=== PATIENT | female | born 1970 | race Caucasian/White ===

== ENCOUNTER 2025-04-06 16:01 | Emergency (ER) | payer MEDICARE, MEDICAID, SELFPAY ==
--- NOTE | ~2025-04-06 | XR_ITS ---
CLINICAL HISTORY: sob 1 view chest x-ray Comparison: None provided Findings: Mild diffuse interstitial prominence in both lungs may represent pulmonary vascular congestion. Normal size heart. No acute fracture. IMPRESSION: Mild diffuse interstitial prominence in both lungs may represent pulmonary vascular congestion. This document has been electronically signed by: Alex Calderon MD on 04/06/2025 19:21:54
--- NOTE | 2025-04-06 16:18 | PC.RT ---
Pt seen by RT on MES arrival. Pt had bronchodilator treatments x2 by EMS with positive improvement. Upon RT assessment, pt is not SOB, SATs on RA 86% while laying flat. Pt asked to sit up and reposition, pt refused stating back and neck pain. Pt on 2L SATs 93%. RR 20, L/S clear bilateral w/ snoring rhonchi on expiration due to laying flat and anatomy. Pt states she does not want another breathing tx at this time. Pt states she wears 2L O2 at night through BiPAP machine. Pt states that she wears her BiPAP every night except for last night due to being in the hospital at [facility]. RN aware of RT assessment.
[2025-04-06 16:19] VITALS: BP 120/77; PULSE 97; RESP 23; TEMP 36.8; O2SAT 94; O2SAT 97; BMI 45.8
--- NOTE | 2025-04-06 17:43 | MHC.EDTECH ---
pt placed on purewick upon request, rn aware
--- NOTE | 2025-04-06 18:09 | PC.NURSE ---
pt comes to ED from home reporting SOB for 1 day after DC from [facility] last night. She states that today she was SOB, didn't have her neb and called EMS. Reports heavy drinking yesterday which is why she was at [facility]. EMS gave2x duonebs. Currently on 2L O2. Pt states she feels better after the nebs. Spo2 mid 90s on 2l. Trailed off O2 on arrival by RT and dipped to 86%. Pt fell asleep after assessment. Waiting for provider orders.
--- OUTSIDE RECORDS SUMMARY | 2025-04-06 18:24 | XMS_ITS | Clinical Summary ---
Author Organization [facility] Facility Address [address] [place] [id number] Care Team Providers Care Bronc Buster Name Role Phone Unavailable Primary Care Provider Unavailabl e Allergies No known active allergies Medications albuterol HFA (PROVENTIL HFA;VENTOLIN HFA) 108 (90 Base) MCG/ACT inhaler albuterol sulfate HFA 90 mcg/actuation aerosol inhaler 03/13/20 19 Active aspirin (ST STAR) 81 MG EC tablet aspirin 81 mg tablet,delayed release TAKE 1 TABLET BY MOUTH DAILY,X90 DAYS 11/28/19 22 Active bumetanide (BUMEX) 2 MG tablet bumetanide 2 mg tablet TAKE 1 TABLET BY MOUTH DAILY. 01/16/20 21 Active cloNIDine (CATAPRES) 0.1 MG tablet clonidine HCl 0.1 mg tablet TAKE 1 TABLET BY MOUTH THREE TIMES A DAY NEEDED 01/27/20 22 Active cyclobenzaprin e (FLEXERIL) 10 MG tablet cyclobenzaprine 10 mg tablet TAKE 1 TABLET BY MOUTH 3 TIMES A DAY NEEDED 07/23/20 21 Active Docusate Sodium (DSS) 100 MG capsule Take 100 mg by mouth 2 (two) times a day if needed 01/19/20 22 Active ipratropium HFA (ATROVENT HFA) 17 MCG/ACT inhaler Inhale 1 puff 4 times a day 03/13/20 19 Active ipratropium-al buterol (Combivent Respimat) 20-100 MCG/ACT inhaler Combivent Respimat 20 mcg-100 mcg/actuation solution for inhalation 1 PUFFS INHALATION 4 TIMES A DAY,X30 DAYS 01/30/20 20 Active ketoconazole (NIZORAL) 2 % cream ketoconazole 2 % topical cream 1 APPLICATION TOPICALLY DAILY,X30 DAYS 07/24/20 21 Active lisinopril 20 MG tablet lisinopril 20 mg tablet TAKE 1 TABLET BY MOUTH DAILY,X90 DAYS Active magnesium oxide 400 (240 Mg) MG tablet magnesium oxide 400 mg (241.3 mg magnesium) tablet 10/11/19 22 Active metOLazone 2.5 MG tablet metolazone 2.5 mg tablet Active miconazole (MICOTIN) 2 % cream Apply 1 application topically 2 (two) times a day if needed 10/08/19 22 Active morphine (MSIR) 15 MG tablet Take 15 mg by mouth 01/27/20 22 Active omeprazole (PriLOSEC) [address] capsule omeprazole 40 mg capsule,delayed release TAKE 1 CAPSULE BY MOUTH 30 - 60 MINS PRIOR TO EATING OR DRINKING 10/16/19 22 Active potassium chloride 10 MEQ CR tablet 20 mEq 09/28/20 21 Active sulfacetamide (BLEPH-10) 10 % ophthalmic solution sulfacetamide sodium 10 % eye drops Active HYDROmorphone (DILAUDID) 4 MG tablet Take 4 mg by mouth every 4 (four) hours if needed for moderate pain Active Active Problems Problem Noted Date Diagnosed Date Bipolar I disorder 06/17/2022 Edema of lower extremity 06/17/2022 Gastroesophageal reflux disease 06/17/2022 Acute exacerbation of chronic obstructive pulmon juan disease 12/22/2021 Overview (06/17/2022): Last Assessment & Plan: Breath sounds are diminished although this could be due to habitus. Minimal wheezing. Given IV Solu-Medrol in the emergency department. I will continue with oral prednisone with scheduled and as needed DuoNeb treatments. Not having a purulent cough so I will not give empiric antibiotics. Chronic respiratory failure 12/22/2021 Overview (06/17/2022): O2 as needed at home for SPO2 <90% Last Assessment & Plan: On 2 L/min via nasal cannula with SPO2 91%. This is appropriate. ABG pending although clinically I do not suspect hypercapnia. Lymphedema 09/06/2021 Obstructive sleep apnea syndrome 06/04/2020 Overview (06/17/2022): Last Assessment & Plan: Prior diagnosis of sleep apnea but patient was unable to complete the full evaluation due to claustrophobia and anxiety. She did have a solitary 2-second pause with brief bradycardia on telemetry monitoring, likely related to her sleep apnea. -Overnight pulse oximetry monitoring -Telemetry monitoring -Outpatient sleep study will be needed for further evaluation -Consider use of oxygen overnight if patient agreeable. Chronic diastolic heart failure 01/29/2020 Overview (06/17/2022): Last Assessment & Plan: No rales on lung exam. Given IV Lasix in the emergency department, but I do not feel that she is volume overloaded more than her baseline. We will continue with her Bumex and metolazone. Immunizations Immunization Administration Dates Next Due Moderna SARS-COV-2 08/16/2021 Pfizer SARS-COV-2 02/12/2021,01/24/2021 Social History Tobacco Use Types Packs/Day Years Used Date Smoking Tobacco: Every Day Cigarettes Smokeless Tobacco: Never Tobacco Cessation:Ready to Q uit: Not Asked; Counseling Given: Not Answered Alcohol Use Standard Drinks/Week Comments Yes 0 (1 standard drink = 0.6 oz pur e alcohol) Comments Unknown Sex and Gender Information Value Date Recorded Sex Assigned at Not on file Legal Sex Female 10:23 AM EDT Gender Identity Not on file Sexual Orientation Not on file Plan of Treatment Health Maintenance Due Date Last Done Comments Breast Cancer Screening 1970 Hepatitis B Vaccine (1 of 3 - 19+ 3-dose series) 09/12 Pneumococcal Vaccine: 50+ Years (1 of 2 - PCV) 989 Colorectal Cancer Screening: Annual FOBT 2019 Colorectal Cancer Screening: Colonoscopy 2019 Colorectal Cancer Screening: Sigmoidoscopy 2019 Influenza Vaccine (#1) 2025 Insurance [facility] ([id number]) [facility]
--- OUTSIDE RECORDS SUMMARY | 2025-04-06 18:24 | XMS_ITS | Clinical Summary ---
Author Organization [employer] Address [address] [facility] [address] [place] [address] Care Team Providers Care Seasonal Retail Merchandiser Name Role Phone Kamille Fuchs MD Primary Care Provider [phone] Medications varenicline (Chantix) 0.5 MG tablet Take 0.5 mg by mouth 2 times daily. Take with full glass of water. Active acetaminophen (Tylenol) 500 MG tablet Take 1,000 mg by mouth every 8 (eight) hours if needed for mild pain. Active Fluticasone-Ume clidin-Vilant (Trelegy Ellipta) 200-62.5-25 MCG/ACT aerosol powder Inhale 1 (one) time. Active albuterol 108 (90 Base) MCG/ACT inhaler Inhale 2 puffs every 6 (six) hours if needed for wheezing. Active potassium chloride CR (Klor-Con M20) 20 MEQ ER tablet Take 20 mEq by mouth Once per day. Do not crush or chew. Active omeprazole (PriLOSEC) [address] capsule Take 40 mg by mouth before breakfast. Do not crush or chew. Active metOLazone (Zaroxolyn) 5 MG tablet Take 5 mg by mouth. Active magnesium oxide (Mag-Ox) 400 mg tablet Take 400 mg by mouth Once per day. Active guaiFENesin (Mucinex) 600 MG 12 hr tablet Take 1,200 mg by mouth 2 times daily. Do not crush, chew, or split. Active bumetanide (Bumex) 2 MG tablet Take 2 mg by mouth Once per day. Active aspirin 81 MG EC tablet Take 81 mg by mouth Once per day. Active cloNIDine (Catapres) 0.1 MG tablet Take 0.1 mg by mouth 2 times daily. Active ondansetron (Zofran) 4 MG tablet Take 4 mg by mouth. Active loratadine (Claritin) 10 MG tablet Take 10 mg by mouth Once per day. Active tiZANidine (Zanaflex) 4 MG tabletIndicatio ns:Opiate withdrawal (CMS/HCC) Take 1 tablet (4 mg) by mouth every 6 (six) hours if needed for muscle spasms for up to 5 days. 20 tablet 03/03/2025 Active hydrOXYzine HCl (Atarax) 25 MG tabletIndicatio ns:Opiate withdrawal (CMS/HCC) Take 1 tablet (25 mg) by mouth if needed in the morning, at noon, and at bedtime for anxiety (or insomnia) for up to 5 days. 15 tablet 03/03/2025 Active dicyclomine (Bentyl) 10 MG capsuleIndicati ons:Opiate withdrawal (CMS/HCC) Take 1 capsule (10 mg) by mouth if needed in the morning, at noon, in the evening, and at bedtime (abdominal pain or cramps) for up to 5 days. 20 capsule 03/03/2025 03/08/20 25 Encounters Date Type Department Care Team Description 03/25/2025 Telephone [facility] MEDICAL [address] [place] [id number] Kamille Fuchs MD request colonoscopy 03/03/2025 Refill [facility] [address] [place] [address] Kamille Fuchs MD Opiate withdrawal (CMS/HCC) 02/09/2025 Telephone [facility] [address] [place] [address] Kamille Fuchs MD from Last 3 Months Social History Tobacco Use Types Packs/Day Years Used Date Smoking Tobacco: Never Assessed Comments Unknown Sex and Gender Information Value Date Recorded Sex Assigned at Female 02/01/2025 1:43 PM EDT Legal Sex Female 1:39 PM EDT Gender Identity Female 02/01/2025 1:43 PM EDT Sexual Orientation Bisexual 02/01/2025 1: 43 PM EDT Plan of Treatment Health Maintenance Due Date Last Done Comments CT Colonography 1970 Colonoscopy 1970 Depression Screening 1970 FIT 1970 FOBT 1970 HIV Screening 1970 Lipid Panel 1970 SDOH Screening 1970 Sigmoidoscopy 1970 Disability Screening 1970 Alcohol/Substance Use Screening 1982 Tobacco Screening 1982 Hepatitis C Screening 1988 DTaP/Tdap/Td Vaccines (1 - Tdap) 1989 Hepatitis B Vaccines (1 of 3 - 19+ 3-dose series) 1989 Pneumococcal Vaccine: 50+ Years (1 of 2 - PCV) 1989 Pap Smear 1991 Cervical Cancer Screening 2000 HPV/Cotest 2000 Mammogram 2010 Zoster Vaccines (1 of 2) 2020 COVID-19 Vaccine (4 - 2023-2 5 season) 2024 08/16/2021, 02/12/2021, 01/24/2021 Influenza Vaccine (#1) 2025 Colorectal Cancer Screening 11/26/2026 FIT DNA/Cologuard 11/26/2026 11/27/2023 RSV Patients and Patients Aged 60 years or older (1 - 1-dose 75+ series) 2045 HIB Vaccines Aged Out No longer eligi ble based on patient's age to complete this topic HPV Vaccines Aged Out No longer eligi ble based on patient's age to complete this topic Hepatitis A Vaccines Aged Out No long er eligible based on patient's age to complete this topic IPV Vaccines Aged Out No longer eligi ble based on patient's age to complete this topic Meningococcal B Vaccine Aged Out No l onger eligible based on patient's age to complete this topic Meningococcal Vaccine Aged Out No jean paul clint eligible based on patient's age to complete this topic RSV under 20 months Aged Out No longe r eligible based on patient's age to complete this topic Rotavirus Vaccines Aged Out No longer eligible based on patient's age to complete this topic Insurance [facility] ONE CARE < 65 [facility] STAND[facility] Care Teams Seasonal Retail Merchandiser Relationship Specialty Start Date End Date Kamille Fuchs MD [address] [place] [address] PCP - General Family Medicine 02/09/25
--- OUTSIDE RECORDS SUMMARY | 2025-04-06 18:24 | XMS_ITS | Data Portability ---
Author Organization [facility], [facility] Address [address] [place] [id number] Care Team Providers Care Skin Lap Bonder Name Role Phone HIM CCA OTHER [facility] Primary Care Provide r Assessment Encounter Date Assessment Date Assessment LastModified by Organization Details LastModified Time 12/06/2024 12/06/2024 I provided real -time medical direction via phone for this encounter, and was available for additional phone based assistance as needed. I have reviewed and agree with the Assessment and Plan as documented by the Lcsw. We discussed the diagnostic uncertainty of home visits and the risk associated with this. In this case the patient and I felt this to be an acceptable and reasonable amount of risk given the benefit of avoiding an ED visit. The patient given the opportunity to ask questions. Advised to keep appointment with new PCP this week. To bring EKG, Copy of labs - if develops CP/severe SOB/turning blue/uncontrolle d n/v/d /AMS/syncope-rec urrent weakness in legs causing another fall/ fever to call 911- she verbalized understanding of instructions to me [email or web address] Not available 12/06/2024 18:54:51 03/08/2025 03/08/2025 I provided real -time medical direction via phone for this encounter, and was available for additional phone based assistance as needed. I have reviewed and agree with the Assessment and Plan as documented by the Lcsw. We discussed the diagnostic uncertainty of home visits and the risk associated with this. The patient given the opportunity to ask questions. [email or web address] Not available 03/08/2025 18:00:31 Plan of Treatment Reminders Order Date Submit Date Provider Last Modified By Organization Details Last Modified Time Details Appointments None recorded. Lab rapid SARS CoV 2 Ag, QL IA, respiratory specimen 2024 025 [email or web address] 0 [facility], [address] [place] [address], [id number] 18:02:05 rapid flu (A+B) 2024 025 [email or web address] 0 [facility], [address] [place] [address], [phone] 18:02:04 BMP, serum or plasma [address], [phone] 18:08:40 Referral None recorded. Procedures None recorded. Surgeries None recorded. Imaging electrocard iogram 2024 025 [email or web address] 0 [facility], [address] [place] [address], [id number] 18:02:04 electrocard iogram 2024 025 [facility], [address] [place] [address], [phone] 20:09:39 Medication Orders albuterol sulfate 2.5 mg/3 mL (0.083 %) solution for nebulizatio n 2024 025 [email or web address] 0 [facility], [address] [place] [address], [address], 18:02:03 bacitracin 500 unit/gram topical ointment 2024 025 [email or web address] 0 [facility], [address] [place] [address], [address], 5 12:07:44 azithromyci n 250 mg tablet 2024 025 [facility] #[id number], [address] [facility] [place], [address], 15:35:47 azithromyci n 250 mg tablet 2024 025 [email or web address] [facility], [address] [place] [address], [address], 5 16:53:16 prednisone 50 mg tablet [address], [address] [place] [address], [address], 5 15:35:45 ipratropium 0.5 mg-albutero l 3 mg (2.5 mg base)/3 mL nebulizatio n soln [address], [address], 5 16:53:23 prednisone 10 mg tablet 2024 025 [facility]/Pharmacy #[id number], [address] [place], [address], 5 15:35:47 furosemide 20 mg tablet [address], [address], 5 16:53:05 ondansetron 4 mg disintegrat ing tablet 2023 024 [email or web address] [facility], [address] [place] [address], [address], 4 14:35:37 Zofran 4 mg tablet [address], [address], 4 14:37:08 cephalexin 500 mg capsule 2023 024 [email or web address] [facility], [address] [place] [address], [address], 4 14:03:28 cephalexin 500 mg capsule 2023 024 [facility], [address] [place] [address], [address], 4 14:03:29 Patient TargetsNo targets recorded. Patient Instructions Encounter Date Encounter Id Patient Instructions Last Modified By Organization Details Last Modified Time 12/06/2024 [id number] application of wound dressing* [email or web address] Not available 12/06/2024 12:07:44 Reason for Referral None Reported. Results Created Date Observation Date Name Description Value Unit Range Abnormal Flag Note LastModifiedBy Organization Detail LastModifiedTime 03/08/2003/08/2025 rapid flu (A+B) Flu negati ve Not Available [address], [phone] 03/08/2025 13:29:14 03/08/20 25 03/08/2025 rapid SARS CoV 2 Ag, QL IA, respi rator y speci men rapid SARS CoV 2 Ag, QL IA, respiratory specimen negati ve Not Available [address], [address] 03/08/2025 13:29:14 12/07/19 25 12/06/2024 elect rocar diogr am No observ ation record ed. [email or web address] [address], [address] 12/06/2024 18:09:02 03/08/2003/08/2025 elect rocar diogr am No observ ation record ed. [email or web address], [address] 03/08/2025 18:24:28 Result Notes None recorded. Problems Name Problem SNOMED Code Status Onset Date Resolution Date Notes Provider Name and Address Organization Details Recorded Time Venous stasis edema of bilateral lower limbs [id number] 106 Active 2022 David Castro MD [address] [place] [address],[address], [place], [phone] [place] [address] [facility] 3 16:11:03 Problem Notes None recorded. Medical Equipment None Reported. Allergies No known drug allergies Medications Name Sig Start Date Stop Date Status Note LastModified by Organization Details LastModified Time b-12 1,000 mcg quick dissol 1 TABLET BY MOUTH DAILY,X30 DAYS active Not Available Not Available No t Available mag-oxide 400 mg tablet TAKE 1 TABLET BY MOUTH DAILY active Not Available Not Available Not Available magnesium oxide 400 (240 mg TAKE 1 TABLET BY MOUTH DAILY active Not Available Not Available Not Available vitamin d3 1,000 unit softg 1 TABLET BY MOUTH DAILY,X30 DAYS active Not Available Not Available No t Available flowflex covid-19 ag home t TEST active Not Available Not Available Not Available mag oxide tab 400mg active Not Available Not Available No t Available cyclobenzapr ine 10 mg tablet TAKE 1 TABLET BY MOUTH 3 TIMES A DAY NEEDED active Not Available Not Available No t Available metolazone 2.5 mg tablet TAKE 1 TABLET (2.5 MG TOTAL) BY MOUTH DAILY FOR 7 DAYS. active Not Available Not Available No t Available clonidine HCl 0.1 mg tablet 1 TABLET BY MOUTH 3 TIMES A DAY WITH MEALS,INSTR :X14 DAYS. active Not Available Not Available N ot Available prednisone 10 mg tablet Take 5 tabs orally for 3 days then 4 tabs orally for 2 days then 3 tabs orally for 2 days then 2 tabs orally for 2 days, then 1 tab orally for 2 days active Not Available Not Available No t Available doxycycline hyclate 100 mg capsule 1 CAPSULE BY MOUTH 2 TIMES A DAY,X7 DAYS active Not Available Not Available Not Available nicotine 14 mg/[address] 1 PATCH ONTO THE SKIN DAILY. APPLY TO A CLEAN, DRY, HAIRLESS SITE ON THE UPPER ARM OR HIP. active Not Available Not Available No t Available ipratropium 0.5 mg-albuterol 3 mg (2.5 mg base)/3 mL nebulization soln Inhale 3 mL every 6-8 hours by nebulizatio n route as needed, for Shortness of breath/whee zing. active Not Available Not Available No t Available bumetanide 2 mg tablet TAKE 1 TABLET BY MOUTH EVERY DAY active Not Available Not Available No t Available albuterol sulfate 2.5 mg/3 mL (0.083 %) solution for nebulization INHALE 3 MLS BY MOUTH EVERY 3 HOURS FOR 30 DAYS:DX ASTHMA; J45.909 active Not Available Not Available No t Available azithromycin 250 mg tablet Take 2 tablets by oral route. active Not Available Not Available Not Available senna 8.6 mg tablet TAKE 2 TABLETS BY MOUTH NIGHTLY AT BEDTIME. active Not Available Not Available No t Available lisinopril 20 mg tablet TAKE 1 TABLET BY MOUTH DAILY,X90 DAYS active Not Available Not Available No t Available ondansetron HCl 4 mg tablet Take 1 tablet twice a day by oral route. active Not Available Not Available No t Available prednisone 20 mg tablet TAKE 2 TAB PO DAILY X 4 DAYS, THEN 1 TAB DAILY X 4 DAYS active Not Available Not Available No t Available metolazone 5 mg tablet TAKE 1 TABLET BY MOUTH EVERY FRIDAY. TAKE TWICE A WEEK IF WEIGHT IF GOING UP BY 3 POUNDS. TAKE 30 MINUTES BEFORE THE BUMETANIDE DOSE. active Not Available Not Available No t Available thiamine HCl (vitamin B1) 100 mg tablet 100 MG BY MOUTH DAILY,X30 DAYS active Not Available Not Available No t Available potassium chloride ER 10 mEq tablet,exten ded release TASKE 2 TABLET BY MOUTH 3 TIMES A DAY,X90 DAYS active Not Available Not Available No t Available sulfamethoxa zole 800 mg-trimethop rim 160 mg tablet 1 TABLET BY MOUTH 2 TIMES A DAY,X7 DAYS active Not Available Not Available Not Available omeprazole 40 mg capsule,austin yed release TAKE 1 CAPSULE BY MOUTH 30 - 60 MINS PRIOR TO EATING OR DRINKING active Not Available Not Available No t Available aspirin 81 mg tablet,delay ed release TAKE 1 TABLET BY MOUTH DAILY,X90 DAYS active Not Available Not Available No t Available tramadol 50 mg tablet active Not Available Not Available No t Available acetaminophe n ER 650 mg tablet,exten ded release active Not Available Not Available Not Available hydromorphon e 2 mg tablet 2 TABLET BY MOUTH EVERY 4 HOURS,X14 DAYS,PRN: NEEDED FOR PAIN active Not Available Not Available No t Available potassium chloride ER 20 mEq tablet,exten ded release(part /cryst) TAKE 1 TABLET (20MEQ) 3 TIMES A DAY,X90 DAYS active Not Available Not Available No t Available magnesium oxide 400 mg (241.3 mg magnesium) tablet TAKE 1 TABLET BY MOUTH DAILY active Not Available Not Available Not Available lorazepam 0.5 mg tablet 1 TABLET BY MOUTH 4 TIMES A DAY,X14 DAYS,IF NEEDED FOR ANXIETY active Not Available Not Available No t Available DOK 100 mg capsule TAKE 1 CAPSULE NEEDED FOR CONSTIPATIO N ORALLY ONCE A DAY 30 DAY(S) active Not Available Not Available No t Available sulfacetamid e sodium 10 % eye drops 1 DROPS EYES, BOTH 4 TIMES A DAY,X7 DAYS active Not Available Not Available Not Available doxycycline monohydrate 100 mg capsule Take 1 capsule twice a day by oral route for 7 days. 2021 active Not Available Not Available Not Avai lable cephalexin 500 mg capsule Take 1 capsule every 6 hours by oral route for 7 days. active Not Available Not Available Not Available prednisone 50 mg tablet Take 1 tablet every day by oral route for 5 days. 2021 active Not Available Not Available Not Avai lable nicotine 21 mg/24 hr daily transdermal patch APPLY 1 PATCH TOPICALLY EVERY DAY. REMOVE OLD PATCH BEFORE APPLYING NEW ONE. active Not Available Not Available No t Available gabapentin 300 mg capsule active Not Available Not Available Not Available magnesium citrate oral solution active Not Available Not Available Not Available folic acid 1 mg tablet 1 MG BY MOUTH DAILY,X30 DAYS active Not Available Not Available No t Available ammonium lactate 12 % topical cream 1 APPLICATION TOPICALLY 2 TIMES A DAY,X10 DAYS,INSTR: APPLY AND RUB IN WELL TO LOWER EXTREMITIES active Not Available Not Available Not Available polyethylene glycol 3350 17 gram/dose oral powder MIX 17 GRAMS INTO 8 OUNCES OF LIQUID, STIR AND DRINK ONCE A DAY. active Not Available Not Available No t Available methylpredni solone 4 mg tablets in a dose pack 1 PACK/PACKET BY MOUTH ONCE active Not Available Not Available No t Available albuterol sulfate HFA 90 mcg/actuatio n aerosol inhaler INHALE 1 PUFF BY MOUTH 4 TIMES A DAY NEEDED FOR SHORTNESS OF BREATH active Not Available Not Available No t Available ketoconazole 2 % topical cream 1 APPLICATION TOPICALLY DAILY,X30 DAYS active Not Available Not Available No t Available morphine 15 mg immediate release tablet 1 TABLET BY MOUTH EVERY 4 HOURS,X28 DAYS,PRN: NEEDED FOR PAIN active Not Available Not Available No t Available ondansetron 4 mg disintegrati ng tablet Place 1 tablet by translingua l route. active Not Available Not Available No t Available clotrimazole 1 % topical cream 1 APPLICATION TOPICALLY 2 TIMES A DAY,X14 DAYS active Not Available Not Available No t Available doxycycline hyclate 100 mg tablet TAKE 1 TABLET TWICE A DAY BY ORAL ROUTE FOR 7 DAYS. active Not Available Not Available No t Available loratadine 10 mg tablet active Not Available Not Available Not Available cholecalcife rol (vitamin D3) 25 mcg (1,000 unit) capsule active Not Available Not Available Not Available Antifungal (miconazole) 2 % topical cream APPLY TOPICALLY 2 (TWO) TIMES A DAY. active Not Available Not Available No t Available nicotine (polacrilex) 4 mg buccal lozenge 4 MG BY MOUTH EVERY HOUR,X4 WEEK(S),PRN :OTHER,INST R:NICOTINE WITHDRAWAL SYMPTOMS (NOT TO EXCEED 20 LOZENGES PER DAY) active Not Available Not Available No t Available albuterol sulfate concentrate 2.5 mg/0.5 mL solution for nebulization 3 ML INHALATION EVERY 6 HOURS,X30 DAYS,PRN:FO R WHEEZING/SH ORTNESS OF BREATH active Not Available Not Available No t Available varenicline tartrate 0.5 mg tablet USE DIRECTED active Not Available Not Available No t Available Combivent Respimat 20 mcg-100 mcg/actuatio n solution for inhalation 1 PUFFS INHALATION 4 TIMES A DAY,X30 DAYS active Not Available Not Available No t Available potassium chloride ER 20 mEq tablet,exten ded release TAKE 1 TABLET BY MOUTH 2 TIMES A DAY active Not Available Not Available Not Available mecobalamin (vitamin B12) 1,000 mcg disintegrati ng tablet,subli ngual active Not Available Not Available Not Available Spiriva Respimat 1.25 mcg/actuatio n solution for inhalation INHALE 2 PUFFS BY MOUTH DAILY active Not Available Not Available Not Available Wixela Inhub 500 mcg-50 mcg/dose powder for inhalation USE 1 PUFFS INHALATION 2 TIMES A DAY,X30 DAYS active Not Available Not Available No t Available Trelegy Ellipta 200 mcg-62.5 mcg-25 mcg powder for inhalation 1 PUFFS INHALATION DAILY,X90 DAYS,INSTR: AT THE SAME TIME EVERY DAY active Not Available Not Available No t Available Flowflex COVID-19 Antigen Home Test kit active Not Available Not Available Not Available Vitals Date Recorded Oxygen saturation Oxygen saturation in Arterial blood by Pulse oximetry Body height Heart rate Body weight Respiratory rate Body temperature Heart rate Oxygen saturation Oxygen saturation in Arterial blood by Pulse oximetry Systolic And Diastolic Provider Name and Address Organization Details Last Updated DateTime 5 90 % 90 % 167.64 cm 100 /min 664640. 8 g 20 /min 98.8 [degF] 82 /min 98 % 98 % 145/87 mm[Hg] Not Available [employer] - production 5 14:54:25 Date Recorded Oxygen saturation Oxygen saturation in Arterial blood by Pulse oximetry Respiratory rate Body temperature Heart rate Systolic And Diastolic Provider Name and Address Organization Details Last Updated DateTime 5 99 % 99 % 16 /min 98.4 [degF] 73 /min 124/76 mm[Hg] Not Available [employer] 5 11:58:29 Date Recorded Systolic And Diastolic Provider Name and Address Organization Details Last Updated DateTime 03/08/2025 159/94 mm[Hg] Tavia Bustamante [address] [facility],[address], [place], [address], [place] - [place] 03/08/2025 13:27:26 Date Recorded Body weight Body temperature Heart rate Body height Respiratory rate Oxygen saturation Oxygen saturation in Arterial blood by Pulse oximetry Systolic And Diastolic Provider Name and Address Organization Details Last Updated DateTime 5 354646. 488 g 98.2 [degF] 87 /min 167.64 cm 24 /min 94 % 94 % 159/94 mm[Hg] Not Available [employer] 5 13:39:05 Date Recorded Respiratory rate Heart rate Oxygen saturation Oxygen saturation in Arterial blood by Pulse oximetry Body temperature Systolic And Diastolic Provider Name and Address Organization Details Last Updated DateTime 4 16 /min 82 /min 98 % 98 % 98.3 [degF] 130/80 mm[Hg] Not Available [employer] 4 13:52:02 Date Recorded Oxygen saturation Oxygen saturation in Arterial blood by Pulse oximetry Body height Heart rate Respiratory rate Body temperature Body weight Systolic And Diastolic Provider Name and Address Organization Details Last Updated DateTime 4 93 % 93 % 167.64 cm 79 /min 17 /min 99.1 [degF] 819551. 8 g 159/94 mm[Hg] Not Available [employer] 4 14:32:17 Social History None recorded. Functional Status None recorded. Mental Status None recorded. Family History Nothing Reported. Medical History No medical history recorded. Gynecological HistoryNo gynecological history recorded. Obstetrics History GPAL:G 0 P 0 0 0 0 Past Encounters Encounter ID Performer Location Encounter Start Date Encounter Closed Date Diagnosis/Indication Diagnosis SNOMED-CT Code Diagnosis ICD10 Code Diagnosis Note [id number] West Overton MD [facility] [address] [place] [address] 02/14/2022 18:06:00 05/24/2022 14:53:33 Acute injury of kidney [id number] N17.9 Patient discharged from hospital with acute kidney injury and was requested to have labs 3-5 days post-disch arge (bumex and lisinopril stopped a discharge) . However, the labs have not been done through [facility]. She has noticed mild edema but no more than 1lb weight gain.I ordered comprehens addison metabolic panel to [facility]. Decision about lisinopril and bumex can be made by primary team after these results. [id number] Katrin Montoya MD [facility] [address] [place] [phone] 02/20/2022 13:06:54 06/07/2022 12:39:57 Edema of lower extremity 316902649 R60.0 Cellulitis of lower limb 441983240 L03.119 but concern given erythema of shins and blistering , of early cellulitis [id number] Claudy Mccollum MD [facility] [address] [place] [phone] 02/22/2022 12:11:19 07/02/2022 10:04:14 Low blood pressure 87548572 I95.9 [id number] Kane Landrum MD [facility] - [facility] [address] [place] [phone] 04/24/2022 12:20:32 06/05/2022 15:52:00 Acute exacerbation of chronic obstructive pulmonary disease 936781448 J44.1 [id number] Nidia Maki MD [facility] [address] [place] [phone] 05/29/2022 12:24:11 05/30/2022 13:11:18 Cellulitis of skin 090417273 L03.90 [id number] Abhishek Pate MD [facility] [address] [place] [phone] 06/27/2022 13:38:33 07/04/2022 11:10:55 Abdominal pain 02014775 R10.9 [id number] David Castro MD [facility] [address] [place] [phone] 05/08/2023 16:05:12 05/08/2023 23:44:38 Venous stasis edema of bilateral lower limbs [id number] 7473309 I87.2 This 52-year-ol d female has a history of bilateral lower leg edema due to venous stasis, with some underlying dermatitis . Recently the swelling has been worse. She takes Bumex daily. She finished a course of antibiotic s a week ago with no improvemen t. I ordered Lasix 40 mg IM. If her legs don't improve or worsen, I suggested that she might need to go to the ER. She has a virtual appointmen t with her PCP. tomorrow. The patient agreed with this plan. [id number] Kathi Arellano MD [facility] - [address] [phone] 05/16/2023 13:15:00 05/17/2023 14:41:49 Cellulitis of lower limb 771316433 L03.119 [id number] West Overton MD [facility] - [address] [id number] 05/21/2023 14:37:47 05/21/2023 23:38:40 Open wound of lower leg 859032725 S81.801A Patient seen for chronic lower extremity edema and wounds. There has been an interrupti on in wound care[facility] and they have improved in appearance . They were wrapped again by the same market development specialist today. Patient is working on arranging resumption of routine wound care. [id number] Barbara Siddiqui MD [facility] - [address] [phone] 06/12/2024 15:52:13 06/12/2024 18:19:06 Venous stasis ulcer with edema of left lower leg [id number] L97.929 As noted, we were called to see this patient regarding concerns of LLE wound. Evaluation in the field was performed by my market development specialist colleague, as noted above, I provided real-time direction and supervisio n for this visit. The evaluation revealed 53 yo woman with chronic lymphedema , without chronic wound care. She [facility] She otherwise thought she can handle the lymphedema . Starting yesterday an area of her L leg has opened up. It is red but without warmth to touch and no systemic symptoms.W ill defer antibiotic s at this time given no signs of active infectionW ill rewrap legs as cleanly as possible and will see what we can do to help establish chronic wound care follow up. Dispositio n: We discussed the diagnostic uncertaint y of home visits and the risk associated with this. In this case, the patient and I felt this to be an acceptable and reasonable amount of risk given the benefit of avoiding an ED visit. We discussed the need to seek care urgently/e mergently in the setting of any new or worsening serious symptoms, particular ly changes to consciousn ess, chest pain, dyspnea. [id number] David Castro MD [facility] [address] [place] [phone] 06/20/2024 13:51:56 06/21/2024 20:30:31 Cellulitis of left lower limb [id number] 9073216 L03.116 This 53-year-ol d female has a history of chronic bilateral leg edema due to venous stasis treated with diuretics. Over the past several days she has had increased erythema and pain on the anterior aspect of her left lower leg. I reviewed images of the area and it appears to be a superficia l ulcer with surroundin g cellulitis . I recommende d local wound care with applicatio n of an antibiotic ointment tid. I also ordered Keflex 500 mg qid for seven days. She will try to elevate the leg and follow-up with her PCP. The patient agreed with this plan. [id number] Susan Fitch MD [facility] [address] [place] [phone] 09/18/2024 14:32:09 09/19/2024 18:00:14 Wound of skin 931208404 T14.8XXD 54 year old female being evaluated for chronic LLE wound. Patient reports had been getting wound care at home with [facility] for some time but then recently was told she would receive supplies to have it done by a caregiver instead. Patient reports that since [facility] visits stopped her wounds have worsened. Patient denies fever/chil ls or trauma to the leg. Separately , patient noted to be nauseous over the last week, impacting her ability to take normal PO. Exam notable for normal vital signs, chronic venous insufficie ncy changes of lower extremitie s, LLE with two superficia l wounds without surroundin g erythema. Presentati on suggestive of chronic superficia l wounds without evidence of superinfec tion. Wound dressed by medic, supplies left for the weekend, recommend contacting PCP to address the need for wound supplies to continue home wound care. Zofran administer ed for nausea, to ensure patient can increase PO intake necessary for adequate wound healing. I have reviewed and agree with the assessment and plan as documented by the market development specialist. I provided real-time medical direction for this encounter and was immediatel y available to provide additional phone-base d assistance as needed. We discussed the diagnostic uncertaint y of home visits and associated risks. We discussed the need to seek care urgently/e mergently in the setting of any new or worsening symptoms. [id number] Kane Gómez MD [facility] [address] [place] [phone] 10/02/2024 14:54:23 10/03/2024 23:30:01 Dyspnea 032880909 R06.00 As noted, we were called to see this patient regarding concerns of dyspnea on a baseline of COPD/asthm a and CHF, present over about the past two weeks. Uses O2 and tends to sleep propped up at home normally, today somewhat worse. Evaluation in the field was performed by my market development specialist colleague, as noted above, I provided real-time direction and supervisio n for this visit. The evaluation revealed tachycardi a, tachypnea, and hypoxemia (though SaO2 about baseline), and upper field wheezes. Pt not sure about weight but thinks it is up. Not sure about edema but also thinks a bit worse than baseline. Hasn't weighed self in many days. Usual diuretic dose is 2 bumetanide (= ~ 80 furosemide ). Impression :Dyspnea, likely multifacto rial, seemingly COPD exacerbati on +/- an element of CHF. Plan:Duone bPred/Azit hroAdditio nal 60 lasix PO Primary care, please have urgent follow-up visit as soon as possible next week. Dispositio n:We discussed the diagnostic uncertaint y of home visits and the risk associated with this. In this case, the patient and I felt this to be an acceptable and reasonable amount of risk given the benefit of avoiding an ED visit. We discussed the need to seek care urgently/e mergently in the setting of any new or worsening serious symptoms, particular ly confusion, dyspnea, severe LH. Acute exac erbation of chronic obstructive pulmonary disease [id number] J44.1 [id number] Katrin Montoya [facility] [address] [place] [phone] 12/06/2024 11:58:19 12/06/2024 22:11:29 Wound of skin [id number] T14.8XXA -Scab came off edematous legs. They do not appear cellulitic , is serosangui neous discharge / reviewed wound care, patient has Neosporin at home/advis ed to wash skin gently and pat dry, apply Neosporin sparingly and wrap with gauze once to twice daily/revi ewed signs of infection needs to be rechecked immediatel y if any occur- she verified understand ing to the medic Lymphedema of bilateral lower limbs [id number] I89.0 Labs unremarkab le, normal renal function, mildly elevated CO2 to be expected in a COPD pt -reassured the patient she is not dehydrated Patient is only taking bumetanide 2 mg twice a week(last dose was 12/04 because she was concerned with dehydratio n but then expressed concern for increasing edema-she is taking KCl 20 mEq once daily although the prescripti on is written for 3x per day Advised to take her Bumex 2 mg daily starting today and to take her potassium 20 mEq twice a day -and continue her mag oxide 400 mg daily until she sees her physician later this week. Also advised to monitor salt intake and reduce salt intake-benedicto vate legs to reduce edema- she verbalizes understand ing. Recurrent falls [id number] 2 R29.6 reviewed EKG w/patient - no old for comp - does not suggest ischemia but advised patient unable to do full cardiac w/u at home- advised to d/w pcp [id number] Katrin Montoya MD [facility] Medical [facility] [address] [place] [phone] 03/08/2025 13:09:03 03/08/2025 18:49:12 Dyspnea [id number] R06.02 Rapid testing negativeEK G is concerning for possible ischemia and given her severe pleuritic and movement related back pain cannot rule out pneumonia or possible PE. Discussed with the patient at length and advised transfer to her local ED for her own safety for full evaluation and appropriat e treatment. She is agreeable- to go to [facility] in [facility] ED called-rep ort given Backache [id number] M54.9 Health Concerns Section Related Observation LastModified by Organization Detai ls LastModified Time None Recorded Concern Status LastModified by Organization Details LastModified Time None Recorded Advance Directives Directive None Recorded Payers Insurance Date Sequence Insurance Name Policy Number Policy Morillo Covered Member ID Morillo Member ID Guarantor Name 05/08/2023 1 [facility] - DOS PRIOR TO 2022 - DUAL ELIGIBLE (MEDICARE REPLACEMENT/ADV ANTAGE - HMO) Graciela Levon [id number] Graciela Squires Levon 03/08/2025 1 [facility] - DOS ON OR AFTER 2022 - DUAL ELIGIBLE - USP OPTIONS AND ONE CARE (MEDICARE REPLACEMENT/ADV ANTAGE - HMO) Graciela Levon [id number] Graciela Squires Levon Notes Date Note Type Note Provider Name and Address Organization Details Recorded Time 06/20/2024 text/html [facility] Nurse Triage Notes (Kristian Montes): Reason For Request: Pt reporting heat radiating from left leg with swelling, with discharge (without pressing onto skin), hardness to the touch Chief Complaints: Edema PMH: Heart Disease, CHF, COPD/Asthma, Diabetes, Hypertension Allergies: Unknown Comments: Jigman verified the member's name//address and phone number. Education provided on the response time and the member was advised to monitor reported s/s and seek emergency treatment if needed. Member reports left lower leg swelling - Warm to the touch - Wounds with redness and drainage - Unknown fever - S/S started several weeks ago - Wound care requested David Castro MD [address] [place] [address],[address], [place], [phone], [employer] 06/20/2024 14:04:19 09/18/2024 text/html HPI: Patient has an open wound to LLE with ongoing swellin. Has limited wound care supplies. Would like assessment of wound. Removed dressing today with reopening of old scabbed area, + green drainage. Patient has pain to area at baseline. Denies fever/chills. Not currently on abx. ...................... ...................... ...................... ...................... ...................... ...................... ......... [facility] Nurse Triage Notes (Nasima Meehan - RN): Reason For Request: Patient has an open wound she would like checked out. Patient Reports: History of cellulitis, isolated redness noted Denies: Mcbride Flash, circumferential mcbride Mcbride reported with black tissue to the area Open skin area after a fall with uncontrolled bleeding Abscess/infection with streaking noted, presence of fever or without Fever and chills noted in setting of wound Chief Complaints: Wound care PMH: Coronary Artery Disease, Congestive Heart Failure, COPD/Asthma, Hypertension, Fibromyalgia, Chronic Pain, Chronic Back Pain ...................... ...................... ...................... ...................... ...................... ...................... ......... Lcsw Note From Kane Savage: [facility] makes pt contact a 54 yo F CC of wound care.[facility] obtains vitals. [facility] obtains pictures of affected lower left leg and upload electronically to [facility]. PT explains she was under the care of wound care from [facility] and they were supposed to send supplies for her to manage the wound at home but never received supplies. PT analytic manager have been trying to wrap wound and take care of it themselves at home. PT has a very low grade fever. Pulses present distal to the wound. PT has discoloration of skin in the leg as well. [facility] contacts [facility] and explains above mentioned. [facility] advises pt to try and eat and drink more since PT has been having issues with nausea [facility] orders a 4mg zofran ODT. [facility] gives without incident, a prescription is sent to pts pharmacy. [facility] then rebandages the wound using a pt supplied calcium silver dressing and then uses gauze to secured the dressing. PT confirms the bandage has no excessive pressure or discomfort. [facility] advises pt to follow up with any concerns and to try her best to continue to drink and eat the appropriate amount of calories to encourage wound healing. [facility] clears ...................... ...................... ...................... ...................... ...................... ...................... ......... [facility] Consulted: Susan Fitch ...................... ...................... ...................... ...................... ...................... ...................... ......... Disposition: Mariposa Fitch MD [address] [facility],[address], [place], [phone], [employer] 09/18/2024 14:55:06 10/02/2024 text/html HPI: mbr with home o2 2L states experiencing congestion sore throat increased work of breathing. pulse oxymeter readings 88-90 drops to 83 with activity. refusing ED. mbr speaking in full sentences requesting [facility] for evaluation advise ...................... ...................... ...................... ...................... ...................... ...................... ......... [facility] Nurse Triage Notes (Kristian Montes - RN): Chief Complaints: Asthma, Breathing problems, COPD, Cough, Sore throat, Weakness PMH: Coronary Artery Disease, Congestive Heart Failure, COPD/Asthma, Hypertension, Fibromyalgia, Chronic Pain, Chronic Back Pain Comments: Reviewed HPI ...................... ...................... ...................... ...................... ...................... ...................... ......... Lcsw Note From Cristobal Booker: TYESHA makes pt contact. She is sitting outside her apartment in a motorized chair, smoking a cigarette. She smiles and says hello and leads [facility] inside the small and somewhat cluttered apartment. She is not in acute respiratory distress. She is speaking in full sentences and using a linear and logical thought pattern. No facial droop, slurred speech, or one-sided weakness are noted. No retractions of accessory muscle usage are noted and pt is not bleeding anywhere. When she speaks, it is slightly nasal in tone due to congestion from a URI she says she has been fighting for at least 2 weeks. She says she went to the ER two weeks ago because she wasn't feeling well, but she was released w/o definitive diagnosis. She was placed on a course of prednisone, which she finished last week. She endorses continued URI symptoms, cough w/ no relief, and feeling very lethargic. Pt endorses increased sob w/ activity due to URI, no associated cp, an inability to cough up her sputum, she is speaking in full sentences, and she is unable to get up and use the toilet. Last night was hard for her to sleep in her bed. She sleeps at about a 30-40 degree angle and 2 pillows normally. She had to sleep sitting up in a recliner the previous evening. Pt also sleeps w/ an IVAP and 2 lpm O2. She has in home O2 she says she is told to wear as needed, but I'm so active, it's too hard to wear all the time. Pt also continues to smoke 1/2 pack of cigarettes per day. Lastly, pt has been using her SVN to administer albuterol treatments for herself, but they have not been working. She endorses relief from duo nebs in the hospital. Pt is denying n/v/d, bladder/bowel issues, and no fever/chills at this time. She consents to evaluation and treatment today.[facility] obtains vital signs and pt is assessed. Lung sounds are decreased in the bases bilateral and insp/exp wheezes are present in the remaining areas. Room air SpO2 hovers between 87%-90%. Remaining physical exam is unremarkable. [facility] contacts [facility] and discusses the above. [facility] recommends a duo neb treatment and reassessment of SpO2 and lung sounds. [facility] administers a duo nebulizer treatment via nebulizer mask at 8 lpm O2. Reassessment of lung sounds reveal increased air movement in the bases w/ some expiratory wheezes and clear lung sounds in the remaining regions. Pt endorses feeling so much better and is able to stand and walk w/ less sob. [facility] re-contacts [facility] and [facility] orders 500mg azithromycin, 60mg prednisone, and 60mg lasix all PO for the pt to take now, and prescribes an 8 day taper of prednisone. Pt thanks [facility] for coming and helping her stay out of the ER today.[facility]H is clear. Report completed by ERMA Booker [id number]. [facility] Medication Orders: azithromycin 250 mg tablet: Administered ...................... ...................... ...................... ...................... ...................... ...................... ......... [facility] Consulted: Geoffrey Gómez ...................... ...................... ...................... ...................... ...................... ...................... ......... Disposition: Fulfilled Kane Gómez MD [address] [place] [address],[address], [place], [phone], [employer] [facility] 10/02/2024 20:50:00 12/06/2024 text/html [facility] Nurse Triage Notes (Tae Hutton): Reason For Request: Patient has alemphadima, and a spot on her skin has a scab, and now something is leaking on her leg, and chunk of scap removed. Bleeding.Denies: Mcbride Flash, circumferential mcbride Mcbride reported with black tissue to the area Open skin area after a fall with uncontrolled bleeding Abscess/infection with streaking noted, presence of fever or without Chief Complaints: Wound CarePMH: Coronary Artery Disease, Congestive Heart Failure, COPD/Asthma, Hypertension, Fibromyalgia, Chronic Pain, Chronic Back PainPMH Reviewed at 12/06/2024:17Allergies Reviewed at 12/06/2024:17Comments: Additional PMH: LymphedemaWriter verified the patient's name//address and phone number. Pt calling reporting hx of lymphedema. Pt reports scab and piece of flesh came off front of L bangura area. Pt reports area leaking bloody fluid. Pt instructed to apply direct pressure to the area. Pt states she does not want to go the hospital. Pt Education provided on the response time and the patient was advised to monitor reported s/s and seek emergency treatment if needed -Cam Hutton RN Lcsw Organization Information for Parish Rosenbergjohn Legal Name: [employer]. Address: [address] [place] [id number], Citizen Participation Specialist: Telly Groves MD CLIA No.: [id number] Lcsw POC Test Results from [facility] iSTAT Chem8+ (12:15:45) Na: 140 mEq/L K: 4.3 mEq/L Cl: 101 mEq/L iCa: 1.16 mmol/L TCO2: 30 mmol/L Glu: 88 mg/dL BUN: 14 mg/dL Crea: 0.7 mg/dL Hct: 42 % Hb: 14.3 g/dL A mmol/L EKG (12:43:42) EKG test performed. Attachments uploaded as part of this test result can be found under Documents section. ...................... ...................... ...................... ...................... ...................... ...................... ......... Lcsw Note From Parish Rosenberg: Dispatched to the call address for the female with a wound on her leg. Pt advises that she has CHF and her legs have become more swollen over the last couple of months. She does take Bumex but admits that she only takes it a couple of times a week as she is worried about being dehydrated. Pt endorses unsteadiness on in her knees at times and has had a few episodes where they have given out and she has fallen to the ground. Pt denies head strikes during those episodes. Pt has PCP appt later this week. Pt advises that she gets scabs on her legs from the dryness of the heat in the winter and this morning a scab picked off and it started bleeding and leaking fluid. Pt advises the bleeding is controlled and she wrapped it to prevent the fluid from leaking everywhere. Pt denies any known allergies. She has been eating and drinking to her baseline, however recently started realizing how much sodium she was consuming. Pt denies chest pain but endorses external dyspnea and advises she sleeps in an elevated position. Pt was found opening door, CAOx4, airway open and patent, breathing non labored, able to speak in full sentences, -JVD, -HEENT, skin PWD with good turgor, mucous membranes pink and moist, abd soft non tender/distended, pupils PERRL, lungs CTA, Afebrile, +CMSx4, +3 edema bilateral lower extremities with waxy like appearance in some areas and flaky dry skin in others. Small wound (approx the diameter of a pen tip) noted on anterior of left lower leg with minor bleeding/fluid leaking-easily controlled with minor pressure. [facility] consulted. BMP, EKG. Pt was advised to take her Bumex 1x daily and her potassium (20mEq) 2x daily. Wound cared for with gentle cleansing, bacitracin, abd pad and secured with roller gauze. Pt advised of red flags and to keep her PCP appt. Pt given low threshold to call 911. ALL times are approx. [facility] Lab Orders: BMP, serum or plasma: Performed [facility] Medication Orders: bacitracin 500 unit/gram topical ointment: Administered ...................... ...................... ...................... ...................... ...................... ...................... ......... [facility] Consulted: Katrin Montoya ...................... ...................... ...................... ...................... ...................... ...................... ......... Disposition: Fulfilled SEGMD: As above- denies CP/palpitations. Has chronic orthopnea and ELLISON- no fever/chills/cough/ sweats. Pat is supposed to be on bumex 2 mg daily(taking 2x per week)/ KCL 20 mEq 3 x per day- taking 1 x per day) also on Mag oxide 400 mg daily- did not tolerate furosemide/torsemide - got cramps. Katrin Montoya MD [address] [place] [address],[address], [place], [phone], [employer] [facility] 12/06/2024 19:05:59 03/08/2025 text/html [facility] Nurse Triage Notes (Albertina Valle): Reason For Request: Pt reporting a lot of pain when she breathes in>back pain>suspects it could be pneumonia Patient Reports: Lower extremity swelling; History of asthma, increased use of inhaler; COPD; Sputum increase ; Shortness of breath with exertion Denies: Increased work of breathing/labored with or without fever Unable to speak in full sentences without distress Discoloration of skin -cyanosis Needs to sleep sitting up, can t catch breath Shortness of breath in setting of confusion Cough, fever greater than 2 days Cough Chief Complaints: Breathing Problems PMH: Coronary Artery Disease, Congestive Heart Failure, COPD/Asthma, Hypertension, Fibromyalgia, Chronic Pain, Chronic Back Pain, Chronic Obstructive Pulmonary Disease (COPD), Asthma PMH Reviewed at 03/08/2025: Allergies Reviewed at 03/08/2025:54 Comments: 54 y.o female complains of Breathing Problems Pt calling for breathing concerns for 3-6 days. She is having sob even during rest periods. She is talking in full sentences, no audible exp wheeze. She feels congested but does not have a cough. She did have the fever and chills but has since resolved, no nausea or vomiting. She does have asthma and COPD, she is 02 dependent at 2:LNC has not increased. She does have nebs in the home but has not helped. She has CHF and has lower ext edema but nothing out of the normal. She is on bumex. I provided information on the mobile health provider response time and advised the patient and/or caregiver to monitor reported signs and symptoms. I discussed the warning signs of when to seek emergency care. Lcsw Organization Information for Cristobal Booker Business Legal Name: [employer]. Address: [address] [place] [address], Citizen Participation Specialist: Telly Groves MD [facility] No.: [id number] Lcsw POC Test Results from [facility] Rapid COVID antigen (13:03:03) COVID: - Attachments uploaded as part of this test result can be found under Documents section. Rapid influenza antigen (13:03:04) Flu: - EKG (13:39:10) EKG test performed. Attachments uploaded as part of this test result can be found under Documents section. ...................... ...................... ...................... ...................... ...................... ...................... ......... Lcsw Note From Cristobal Booker: TYESHA makes pt contact. She is laying semi-fowlers in her hospital bed in her room wearing her bilevel w/ O2. She is conscious and alert and greets MIPaige. She is not ashen or alicea, no stridor or sonorous respirations are present, and no facial droop or one-sided weakness are observed. She is answering questions appropriately and she is not bleeding anywhere. Pt endorses feeling more SOB for the past 3-4 days w/ lower back pain that radiates up her back to her shoulder blades when she takes deep breaths. She also c/o back pain w/ activity. She denies pain radiating into her legs and has no urinary or bowel s/s. Pt describes the pain as sharp and stabbing and encompasses her whole back. when subjectively compared to her worst episode of sob, pt says this feels like 8/10. She had subjective fevers/chills yesterday and some chills this morning. Pt is denying cp and n/v/d. She has used her duoneb home treatments 4-5 times in the past two days, w/ her most recent one this morning around 0900 and has had little to no relief. She has a productive cough but is unable to cough hard enough to get up any sputum. Pt says the swelling and color in her LEs is normal for her. She has not increased her baseline O2 w/ the bilevel but has been wearing it all morning. She has had pna in the past and says this feels similar. She has NKDA. [facility] obtains vital signs and pt is assessed. Head is atraumatic and normocephalic. Sclera are clear, pupils are PERRL, and extraocular movements are intact. No perioral or peripheral cyanosis is observed. Supraclavicular retractions are noted as well as accessory chest muscles to breathe when she sits up for evaluation. Lung sounds are diminished in all moreno and rales are present on the lower L side to auscultation. Abdomen is soft and nontender w/ no guarding, distension, or pulsating masses noted. Bilateral LEs are hyperpigmented and mild non-pitting edema is present in both ankles and feet. CMS is intact and cap refill is <2sec. Pt is moving her UEs in a smooth and coordinated manner. She is answering all questions and following all commands. Pt is swabbed for COVID/flu and found to be negative for both. Pt is asked to walk from the bed to the bathroom, approx 20ft and O2 levels are assessed. She has no increase in respiratory effort and SpO2 remains 94-95%. When sitting quietly on the edge of the bed, her RR drops to 18-20 bpm. Pt c/o back pain while walking to the bathroom w/ increased pain when she coughs. [facility] contacts [facility] and discusses the above. [facility] requests a 12 lead EKG and orders one albuterol nebulizer tx. [facility] obtains a 12-lead EKG that is a sinus rhythm w/ 1mm ST elevation in leads II, III, and aVF and Q waves present. One 2.5mg albuterol treatment is administered via nebulizer mask at 8 lpm O2. Pt says she feels the nebulizer treatment helped and begins to have a more productive cough and is able to expectorate. Lung sounds are improved w/ more air movement noted in all moreno. [facility] recontacts [facility] and expresses concern over changes observed in the EKG when compared to an EKG from November of this year. [facility] discusses her concerns w/ the pt and pt is amendable to transport for further evaluation. [facility] contacts 911 and pt is transported to [facility] by [facility]. [facility] is clear. Report completed by ERMA Booker [id number]. [facility] Lab Orders: rapid SARS CoV 2 Ag, QL IA, respiratory specimen: Performed rapid flu (A+B): Performed [facility] Medication Orders: albuterol sulfate 2.5 mg/3 mL (0.083 %) solution for nebulization: Administered ...................... ...................... ...................... ...................... ...................... ...................... ......... [facility] Consulted: Katrin Montoya ...................... ...................... ...................... ...................... ...................... ...................... ......... Disposition: Fulfilled Katrin Montoya MD [address] [place] [address],[address] [facility], [place], [phone], [facility] 03/08/2025 18:02:11 OBGyn Episode No OBEpisode recorded.
--- NOTE | 2025-04-06 18:39 | ECG_ITS ---
Test Reason : sob Blood Pressure : */* mmHG Vent. Rate : 90 BPM Atrial Rate : 90 BPM P-R Int : 180 ms QRS Dur : 84 ms QT Int : 370 ms P-R-T Axes : 67 85 66 degrees QTcB Int : 452 ms Normal sinus rhythm Low voltage QRS Borderline ECG No previous ECGs available Referred By: Tita Lofton Electronically Signed By: Alvin Restrepo
--- NOTE | 2025-04-06 18:41 | ED.SOB ---
HPI - SOB/Dyspnea General Chief Complaint: Dyspnea Stated Complaint: copd excerbation Time Seen by Provider: 04/06/25 16:30 History of Present Illness HPI Narrative: Patient is a 54-year-old female history of ETOH. History of COPD. Baseline on oxygen at night. Patient was drinking heavily. Was noted to have some shortness of breath. Patient has a history of needing oxygen at night. On my arrival patient oxygen was actually off. Her sat was 96%. She admits to drinking. He denies any trauma. Patient is from home. Positive coughing but had a history of the same. Related Data Allergies Allergy/AdvReac Type Severity Reaction Status Date / Time nicotine (From NICODERM) Allergy Unknown RASH Verified 04/06/25 16:22 tape Allergy Unknown rash Uncoded 01/01/12 00:00 Review of Systems Review of Systems: Positive coughing positive shortness of breath Yes all other systems are reviewed and are negative PMFSH Past Medical History Attestation statement: The following information was validated with the patient. Social History Social History Alcohol intake: current Smoked in Last 30 Days: Yes Use of substances other than those prescribed or required for medical reasons: No Advance Directives: No Advance Directives Information Provided: No Physical Exam Vital Signs: Vital Signs: Last Vital Signs Temp 98.3 F 04/06/25 16:19 Pulse 97 04/06/25 16:19 Resp 23 H 04/06/25 16:19 BP 120/77 04/06/25 16:19 Pulse Ox 97 04/06/25 16:19 O2 Del Method Room Air 04/06/25 16:19 BMI result Body Mass Index 45.8 Appearance: Alert. Oriented X3. No acute distress. Eyes: Pupils equal, round and reactive to light. ENT: Pharynx normal. Neck: Normal inspection. Neck supple. No lymph nodes noted. No crepitus CVS: Normal heart rate and rhythm. Pulses normal. Normal S1 and S2 Respiratory: Diminished breath sounds bilaterally Abdomen: Soft and nontender. No rigidity. No distention. good BS x4 Skin: Skin warm and dry. Normal skin color. Normal skin turgor. Extremities: No lower extremity edema. Neurovascular intact to all extremities. No Lacerations. No Rash Neuro: Oriented X 3. No motor deficit. No sensory deficit. Moving all extermities. No slurred speech Medical Decision Making Medical Decision Making [facility] Narrative: Patient is 54 years old has a long history of alcohol abuse. Was at [employer] yesterday for alcohol abuse. Presents today with having shortness of breath EtOH. Patient is on my exam lungs actually diminished bilaterally but no acute distress. O2 sat was in the 95% range with room air. Patient given some time. Monitored. Patient's troponin was negative BNP is negative there is no evidence for CHF. COVID flu RSV was negative. My interpretation patient's chest x-ray is grossly negative. Radiology's interpretation showed a question mild congestion in the setting of negative BNP unlikely secondary to CHF. My interpretation patient's blood gas showed a pH of 7.38 pCO2 52 no acute CO2 retention. Patient's electrolyte showed an alcohol of 156. After monitoring 5 hours patient is not clinically sober. Will discharge home. In stable condition. Differential Diagnosis Differential Diagnoses: The differential diagnosis associated with the presentation includes Admission/Observation Consideration of admission/observation: Escalation of care including admission/observation considered Lab Data [facility] Lab Attestation statement: I reviewed the patient's lab results. 04/06/25 19:24 04/06/25 19:24 Labs: Lab Results 04/06/25 04/06/25 Range/Units 19:24 19:30 WBC 7.0 (4.8-10.8) X10*3/uL RBC 4.56 (4.20-5.50) X10*6/uL Hgb 14.7 (12.0-16.0) g/dl Hct 43.8 (37.0-47.0) % MCV 96.1 (80.0-98.0) fL MCH 32.2 (27.0-33.0) pg MCHC 33.6 (31.0-35.0) g/dl RDW 15.0 (11.0-16.0) % Plt Count 189 (160-400) X10*3/uL MPV 9.6 (9.4-12.3) fL Immature Gran % (Auto) 1.0 H (0.0-0.4) % Neut % (Auto) 63.9 (45-73) % Lymph % (Auto) 28.7 (20-40) % [place] % (Auto) 5.0 (2-11) % Eos % (Auto) 0.7 (0-4) % Baso % (Auto) 0.7 (0-2) % Lymph # (Auto) 2.0 (1.2-4.9) X10*3/uL [place] # (Auto) 0.4 (0.1-1.2) X10*3/uL Eos # (Auto) 0.1 (0.0-0.4) X10*3/uL Baso # (Auto) 0.1 (0.0-0.2) X10*3/uL Abs Immat Gran (auto) 0.07 H (0.00-0.03) X10*3/uL Absolute Neuts (auto) 4.5 (2.0-8.3) x10*3/uL Absolute Nucleated RBC 0.000 (0.0-0.012) X10*3/uL Nucleated RBC % (auto) 0.0 (0.0-0.2) /100WBC PT 12.5 H (10.9-12.4) SEC INR 1.1 (0.9-1.1) VBG pH 7.38 (7.32-7.43) VBG pCO2 52 mmHg VBG pO2 42 mmHg VBG HCO3 31 H (22-26) mmol/L VBG O2 Saturation 68.0 % VBG Base Excess 4.9 mmol/L Sodium 146 H (135-145) mmol/L Potassium 4.3 (3.3-5.1) mmol/L Chloride 110 H (96-108) mmol/L Carbon Dioxide 28 (22-29) mmol/L Anion Gap 12 (12-20) BUN 10 (9-16) mg/dL Creatinine 0.54 (0.5-1.4) mg/dL Estim Creat Clear Calc 163.5 Estimated GFR > 60 Random Glucose 91 (60-115) mg/dL Calcium 8.4 (8.4-10.2) mg/dL Troponin I High Sens < 2.7 (<3.5-17.0) ng/L B-Natriuretic Peptide 55 (<100) pg/mL Ethyl Alcohol 156 mg/dL Influenza Type A (PCR) NEGATIVE (Negative) Influenza Type B (PCR) NEGATIVE (Negative) RSV RNA Qual (PCR) NEGATIVE (Negative) SARS-CoV-2 RNA (RT-PCR) NEGATIVE (Negative) Independent Interpretation I performed an independent interpretation of an: EKG (Sinus rhythm heart rate is 90 VA QRS QTC normal no acute ST segment elevation) Radiology Impression Discussion of test interpretation with radiology: I have reviewed the radiologist's reading. Chronic Conditions Long history of alcohol use, COPD Social Determinants Patient?s care significantly limited by Social Determinants of Health including: Alcoholism and drug addiction in family and Problems related to primary support group Discharge Plan Discharge Clinical Impression: COPD (chronic obstructive pulmonary disease), Alcohol intoxication Patient Disposition: Home, Self-Care Instructions: Abuse of Alcohol (DC), COPD (Chronic Obstructive Pulmonary Disease) (DC), COPD (Chronic Obstructive Pulmonary Disease) (ED) Referrals: Physician,None [Primary Care Provider, Medical] - 3 days Print Language: Bengali
[2025-04-06 19:29] LABS: MANUAL DIFF FLAG NO
[2025-04-06 19:31] LABS: Hematocrit 43.8 % (37.0-47.0); Hemoglobin 14.7 g/dl (12.0-16.0); Imm Gran Abs Auto 0.07 X10*3/uL (0.00-0.03); Imm Gran Pct Auto 1.0 % (0.0-0.4); Lymphocytes Absolute Auto 2.0 X10*3/uL (1.2-4.9); Mean Corpuscular HGB Conc 33.6 g/dl (31.0-35.0); Mean Corpuscular Hemoglobin 32.2 pg (27.0-33.0); Mean Corpuscular Volume 96.1 fL (80.0-98.0); NRBC Abs Auto 0.000 X10*3/uL (0.0-0.012); NRBC Pct Auto 0.0 /100WBC (0.0-0.2); Platelet Count 189 X10*3/uL (160-400); Red Blood Count 4.56 X10*6/uL (4.20-5.50); White Blood Count 7.0 X10*3/uL (4.8-10.8)
[2025-04-06 19:35] LABS: VBG HCO3 31 mmol/L (22-26); VBG O2 % Saturation 68.0 %
[2025-04-06 19:36] LABS: Venous Blood Gas Refer to POC result
[2025-04-06 19:44] LABS: Anion Gap 12 (12-20); Blood Urea Nitrogen 10 mg/dL (9-16); Calcium 8.4 mg/dL (8.4-10.2); Carbon Dioxide 28 mmol/L (22-29); Chloride 110 mmol/L (96-108); Creatinine Clr Calc Pharmacy 163.5; Estimated Glomerular Filt Rate > 60; Potassium 4.3 mmol/L (3.3-5.1); Sodium 146 mmol/L (135-145)
[2025-04-06 19:45] LABS: INTERNATIONAL NORM RATIO 1.1 (0.9-1.1); Prothrombin Time 12.5 SEC (10.9-12.4)
[2025-04-06 19:50] LABS: B Type Natriuretic Peptide 55 pg/mL (<100)
[2025-04-06 19:52] LABS: Troponin-I High Sensitivity < 2.7 ng/L (<3.5-17.0)
[2025-04-06 20:08] LABS: Resp Syncy Virus RNA Qual PCR NEGATIVE (Negative); SARS COV2 PCR INHOUSE NEGATIVE (Negative)
[2025-04-06 22:12] VITALS: PULSE 88; RESP 20; O2SAT 96
[2025-04-06] MEDS: Albuterol Sulfate 2.5 MG, Albuterol/Iprat 2.5/0.5MG 3 ML 3 ML INHALE (22:12)
== END 2025-04-07 01:00 | disposition home or self-care (01) ==
PROVIDERS: Emergency Provider Emergency Medicine Emergency Medical Services
DX: J44.1 Chronic obstructive pulmonary disease with (acute) exacerbation (principal); R05.9 Cough, unspecified; R06.02 Shortness of breath; F10.129 Alcohol abuse with intoxication, unspecified; Y90.6 Blood alcohol level of 120-199 mg/100 ml; Z51.81 Encounter for therapeutic drug level monitoring; Z03.818 Encounter for observation for suspected exposure to other biological agents ruled out; Z79.899 Other long term (current) drug therapy
CPT/HCPCS: 36415; 71045; 80048; 80307; 82803; 83880; 84484; 85025; 85610; 87637; 93005; 94640; 99284; 99285

== ENCOUNTER → 2025-04-06 18:39 | Outpatient (BNV) | payer OTHER, SELFPAY | PROVIDERS: Emergency Provider Emergency Medicine Emergency Medical Services; Visit Provider Internal Medicine Cardiovascular Disease | DX: R06.02 Shortness of breath (principal) | CPT/HCPCS: 93010 ==

== ENCOUNTER → 2025-04-06 18:39 | Outpatient (BNV) | payer MEDICAID, SELFPAY | PROVIDERS: Emergency Provider Emergency Medicine Emergency Medical Services; Visit Provider Student in an Organized Health Care Education/Training Program | DX: R06.02 Shortness of breath (principal) | CPT/HCPCS: 71045 ==

== ENCOUNTER → 2025-05-07 04:58 | Outpatient (BNV) | payer OTHER, SELFPAY | PROVIDERS: Emergency Provider Emergency Medicine; Visit Provider Internal Medicine | DX: I44.0 Atrioventricular block, first degree (principal) | CPT/HCPCS: 93010 ==

== ENCOUNTER → 2025-05-07 04:59 | Outpatient (BNV) | payer OTHER, SELFPAY | PROVIDERS: Emergency Provider Emergency Medicine; Visit Provider Radiology Diagnostic Radiology | DX: R06.02 Shortness of breath (principal) | CPT/HCPCS: 71045 ==

== ENCOUNTER 2025-05-07 05:10 | Emergency (ER) | payer OTHER, SELFPAY ==
--- NOTE | ~2025-05-07 | XR_ITS ---
CLINICAL HISTORY: sob 1 view chest x-ray Comparison: CR - XR CHEST 1V - 04/06/25 19:04 EDT Findings: No consolidation or effusion. Heart size is normal. No acute fracture. IMPRESSION: 1. No acute findings. This document has been electronically signed by: Nelly Denis MD on 05/07/2025 05:59:15
--- NOTE | 2025-05-07 04:58 | ECG_ITS ---
Test Reason : SOB Blood Pressure : */* mmHG Vent. Rate : 82 BPM Atrial Rate : 82 BPM P-R Int : 214 ms QRS Dur : 80 ms QT Int : 370 ms P-R-T Axes : 67 76 71 degrees QTcB Int : 432 ms Sinus rhythm with 1st degree A-V block Septal infarct , age undetermined Abnormal ECG When compared with ECG of 06-Apr-2025 19:09, [place] interval has increased Referred By: Padmini Mcnamara Electronically Signed By: VENKATA GARCIA
[2025-05-07] MEDS: Albuterol Sulfate 5 MG, Albuterol/Iprat 2.5/0.5MG 3 ML 3 ML INHALE (05:01)
[2025-05-07 05:02] VITALS: PULSE 83; RESP 18; O2SAT 96
--- NOTE | 2025-05-07 05:04 | ED.SOB ---
HPI - SOB/Dyspnea General Chief Complaint: Dyspnea Stated Complaint: sob Source: patient and EMS Mode of arrival: EMS Limitations: no limitations History of Present Illness ED Provider: Dr. Padmini Mcnamara HPI Narrative: Patient comes to the emergency room complaining of shortness of breath. Patient states that a few days ago she was diagnosed with COPD, was using a prednisone but now that she ran out, all of her symptoms started again. Patient states that she has difficulty getting a breath in, states it is worse on the left side of the lung. When EMS arrived to the patient's his residency, she was giving herself a nebulization treatment. She did not get any other meds and route to the hospital. Related Data Previous Rx's ?Medication ?Instructions ?Recorded albuterol sulfate 90 mcg/actuation 2 puff inhalation Q4-6H PRN 05/07/25 aerosol inhaler (Ventolin HFA) shortness of breath or wheezing #8.5 grams azithromycin 250 mg tablet 250 mg PO DAILY 4 days #4 tabs 05/07/25 cefuroxime axetil 500 mg tablet 500 mg PO BID 5 days #10 tabs 05/07/25 ipratropium 0.5 mg-albuterol 3 mg 3 ml inhalation Q4H PRN shortness 05/07/25 (2.5 mg base)/3 mL nebulization of breath #90 mL soln prednisone 50 mg tablet 50 mg PO DAILY #4 tabs 05/07/25 Allergies Allergy/AdvReac Type Severity Reaction Status Date / Time nicotine (From NICODERM) Allergy Unknown RASH Verified 05/07/25 05:20 tape Allergy Unknown rash Uncoded 05/07/25 05:20 Review of Systems Review of Systems: Constitutional : No Weight loss, No Fever, No Chills, No Night Sweats, No Fatigue, No Malaise ENT/Mouth : No Hearing loss, No Ear Pain, No Nasal Congestion, No Sinus Pain, No Hoarseness, No sore throat, No Rhinorrhea, No Swallowing Difficulty Eyes: No Eye Pain, No Swelling, No Redness, No Foreign Body, No Discharge, No Vision Changes Cardiovascular : No Chest Pain, No SOB, No Dyspnea on Exertion, No Orthopnea, No Edema, No Palpitations Respiratory : Complaining of cough, wheezing and shortness of breath Gastrointestinal : No Nausea, No Vomiting, No Diarrhea, No Constipation, No abdominal Pain, No Hematochezia, No Melena Genitourinary : no irregular bleeding, No Dysuria, No Urinary Frequency, No Hematuria, No Urinary Incontinence, No Urgency, No Flank Pain, No Urinary Flow Changes, No Hesitancy Musculoskeletal : No joint pain, No Myalgias, No Joint Swelling Skin : No Skin Lesions, No rash Neuro : No Weakness, No Numbness, No Paresthesias, No Loss of Consciousness, No Dizziness, No Headache Psych : No Anxiety/Panic, No Depression, No SI/HI/AH/VH, No Social Issues, Heme/Lymph: No Bruising, No Bleeding,No Lymphadenopathy Endocrine : No Polyuria, No Polydipsia, No Temperature Intolerance [facility] Past Medical History Medical History (Updated 05/07/25 @ 07:05 by Padmini Mcnamara MD) COPD (chronic obstructive pulmonary disease) Social History Social History Alcohol intake: current Alcohol intake frequency: 3 or more drinks per day Smoked in Last 30 Days: Yes Use of substances other than those prescribed or required for medical reasons: Yes Substance Use Type: Marijuana Advance Directives: No Advance Directives Information Provided: Yes Patient : No Physical Exam Exam: Exam: Appearance: Alert. Oriented X3. No acute distress. Eyes: Pupils equal, round and reactive to light. ENT: Pharynx normal. Neck: Normal inspection. Neck supple. No lymph nodes noted. No crepitus CVS: Normal heart rate and rhythm. Pulses normal. Normal S1 and S2 Respiratory: Tachypneic, bilateral wheezing but diminished. Abdomen: Soft and nontender. No rigidity. No distention. Skin: Skin warm and dry. Normal skin color. Normal skin turgor. Extremities: Chronic venous stasis bilaterally Neuro: Oriented X 3. No motor deficit. No sensory deficit. Moving all extremities. No slurred speech. CN 2 through 12 grossly intact Psych: calm, cooperative, normal affect Vital Signs: Vital Signs: Last Vital Signs Temp 98.1 F 05/07/25 05:16 Pulse 83 05/07/25 05:54 Resp 21 H 05/07/25 05:54 BP 153/89 H 05/07/25 05:54 Pulse Ox 97 05/07/25 05:54 O2 Del Method Room Air 05/07/25 05:54 BMI result Body Mass Index 48.3 Course Course Course Narrative: On arrival, patient receiving nebulization treatments, IV fluids, due to patient's recent history, patient was covered with antibiotics, azithromycin and ceftriaxone. Also given Solu-Medrol and magnesium All of patient's labs pending Medications Administered Discontinued Medications Generic Name Dose Route Start Last Admin Trade Name Addy PRN Reason Stop Dose Admin Ceftriaxone Sodium 1 gm 05/07/25 04:59 05/07/25 05:36 Ceftriaxone Sodium 1 Gm Vial IVPUSH 05/07/25 05:00 1 gm ONCE ONE Administration Albuterol Sulfate 5 mg/ 0 mg 05/07/25 04:53 05/07/25 05:01 Albuterol/Ipratropium 3 ml INHALE 05/07/25 04:54 7.5 each ONCE ONE Administration Magnesium Sulfate 2 gm in 50 mls @ 25 mls/hr 05/07/25 04:59 05/07/25 06:56 Magnesium Sulfate/H2o IV 05/07/25 06:58 Infused ONCE ONE Infusion Azithromycin 500 mg/ Sodium 250 mls @ 125 mls/hr 05/07/25 04:59 05/07/25 06:56 Chloride IV 05/07/25 06:58 Not Given ONCE ONE Sodium Chloride 1,000 mls @ 999 mls/hr 05/07/25 04:59 05/07/25 06:56 Ns IVCONT 05/07/25 05:59 Infused .Q1H1M ONE Infusion Methylprednisolone Sodium Succinate 125 mg 05/07/25 04:59 05/07/25 05:39 Methylprednisolone Sod Succ 125 Mg/2 Ml Vial IVPUSH 05/07/25 05:00 125 mg ONCE ONE Administration Medical Decision Making Medical Decision Making [facility] Narrative: My interpretation of labs: No significant abnormality in patient's hematology and chemistry, blood gases, lactic, serology negative Chest x-ray did not show any acute abnormality. After the above-mentioned medications, patient feels much better. Patient is not ambulatory, patient uses the wheelchair most of the time and only states up to transfer. Patient states that she can do so without any difficulty Patient feels much better, no longer wheezing, oxygen saturation 97% on room air Differential Diagnosis Differential Diagnoses: The differential diagnosis associated with the presentation includes (Chronic lung disease, pneumonia, viral illness, asthma) Admission/Observation Consideration of admission/observation: Escalation of care including admission/observation considered (Given patient's past medical history and presentation, observation/admission was considered) Lab Data MDM Lab Attestation statement: I reviewed the patient's lab results. 05/07/25 05:20 05/07/25 05:20 Labs: Lab Results 05/07/25 05/07/25 05/07/25 Range/Units 05:20 05:27 05:30 WBC 8.4 (4.8-10.8) X10*3/uL RBC 4.86 (4.20-5.50) X10*6/uL Hgb 15.8 (12.0-16.0) g/dl Hct 48.3 H (37.0-47.0) % MCV 99.4 H (80.0-98.0) fL MCH 32.5 (27.0-33.0) pg MCHC 32.7 (31.0-35.0) g/dl RDW 14.5 (11.0-16.0) % Plt Count 182 (160-400) X10*3/uL MPV 10.0 (9.4-12.3) fL Immature Gran % (Auto) 1.8 H (0.0-0.4) % Neut % (Auto) 57.6 (45-73) % Lymph % (Auto) 33.8 (20-40) % [place] % (Auto) 5.3 (2-11) % Eos % (Auto) 0.7 (0-4) % Baso % (Auto) 0.8 (0-2) % Lymph # (Auto) 2.9 (1.2-4.9) X10*3/uL [place] # (Auto) 0.5 (0.1-1.2) X10*3/uL Eos # (Auto) 0.1 (0.0-0.4) X10*3/uL Baso # (Auto) 0.1 (0.0-0.2) X10*3/uL Abs Immat Gran (auto) 0.15 H (0.00-0.03) X10*3/uL Absolute Neuts (auto) 4.9 (2.0-8.3) x10*3/uL Absolute Nucleated RBC 0.000 (0.0-0.012) X10*3/uL Nucleated RBC % (auto) 0.0 (0.0-0.2) /100WBC VBG pH 7.36 (7.32-7.43) VBG pCO2 59 mmHg VBG pO2 45 mmHg VBG HCO3 34 H (22-26) mmol/L VBG O2 Saturation 71.0 % VBG Base Excess 6.4 mmol/L Sodium 144 (135-145) mmol/L Potassium 4.1 (3.3-5.1) mmol/L Chloride 104 (96-108) mmol/L Carbon Dioxide 30 H (22-29) mmol/L Anion Gap 14 (12-20) BUN 16 (9-16) mg/dL Creatinine 0.67 (0.5-1.4) mg/dL Estim Creat Clear Calc 136.1 Estimated GFR > 60 Random Glucose 97 (60-115) mg/dL Lactic Acid 1.4 (0.5-2.0) mmol/L Calcium 9.0 D (8.4-10.2) mg/dL Total Bilirubin 0.2 (0.0-1.0) mg/dL Direct Bilirubin < 0.2 (0.0-0.5) mg/dL AST 21 (5-31) U/L ALT 19 (0-31) U/L Alkaline Phosphatase 93 (39-117) U/L Troponin I High Sens < 2.7 (<3.5-17.0) ng/L B-Natriuretic Peptide 15 (<100) pg/mL Total Protein 8.0 (6.5-8.0) g/dL Albumin 4.7 (3.5-5.0) g/dL Ethyl Alcohol < 10 mg/dL Influenza Type A (PCR) NEGATIVE (Negative) Influenza Type B (PCR) NEGATIVE (Negative) RSV RNA Qual (PCR) NEGATIVE (Negative) SARS-CoV-2 RNA (RT-PCR) NEGATIVE (Negative) Independent Interpretation I performed an independent interpretation of an: Plain X-Ray Radiology Impression Discussion of test interpretation with radiology: I have reviewed the radiologist's reading. Radiologist Impression: No consolidation or effusion. Heart size is normal. No acute fracture. Critical Care Time Critical Care Time Critical Care Time: Yes Total Critical Care Time: 45 Attestation: I have personally provided critical care time. Time includes review of lab data, radiology results, discussion with consultants, and monitoring for potential decompensation. Intervention performed as documented. Discharge Plan Discharge Clinical Impression: Chronic lung disease Patient Disposition: Home, Self-Care Instructions: Chronic Bronchitis (ED) Additional Instructions: Please follow-up with your primary care physician tomorrow. If you have any worsening or new symptoms, please return to the emergency room or call 911 Prescriptions: New azithromycin 250 mg tablet 250 mg PO DAILY 4 Days Qty: 4 0RF Rx Instructions: start on day 2 of therapy ipratropium-albuterol 0.5 mg-3 mg(2.5 mg base)/3 mL solution for nebulization 3 ml inhalation Q4H PRN (Reason: shortness of breath) Qty: 90 0RF prednisone 50 mg tablet 50 mg PO DAILY Qty: 4 0RF cefuroxime axetil 500 mg tablet 500 mg PO BID 5 Days Qty: 10 0RF albuterol sulfate [Ventolin HFA] 90 mcg/actuation HFA aerosol inhaler 2 puff inhalation Q4-6H PRN (Reason: shortness of breath or wheezing) Qty: 8.5 1RF Print Language: [place]
[2025-05-07 05:16] VITALS: BP 160/99; BP 171/102; PULSE 80; PULSE 84; RESP 20; TEMP 36.7; O2SAT 94; O2SAT 95; BMI 48.3
[2025-05-07 05:25] LABS: Venous Blood Gas Refer to POC result
[2025-05-07 05:26] LABS: MANUAL DIFF FLAG NO
[2025-05-07 05:28] LABS: Hematocrit 48.3 % (37.0-47.0); Hemoglobin 15.8 g/dl (12.0-16.0); Imm Gran Abs Auto 0.15 X10*3/uL (0.00-0.03); Imm Gran Pct Auto 1.8 % (0.0-0.4); Lymphocytes Absolute Auto 2.9 X10*3/uL (1.2-4.9); Mean Corpuscular HGB Conc 32.7 g/dl (31.0-35.0); Mean Corpuscular Hemoglobin 32.5 pg (27.0-33.0); Mean Corpuscular Volume 99.4 fL (80.0-98.0); NRBC Abs Auto 0.000 X10*3/uL (0.0-0.012); NRBC Pct Auto 0.0 /100WBC (0.0-0.2); Platelet Count 182 X10*3/uL (160-400); Red Blood Count 4.86 X10*6/uL (4.20-5.50); White Blood Count 8.4 X10*3/uL (4.8-10.8)
[2025-05-07 05:32] LABS: VBG HCO3 34 mmol/L (22-26); VBG O2 % Saturation 71.0 %
[2025-05-07 05:45] LABS: Alanine Aminotransferase 19 U/L (0-31); Albumin Level 4.7 g/dL (3.5-5.0); Alkaline Phosphatase 93 U/L (39-117); Anion Gap 14 (12-20); Aspartate Amino Transferase 21 U/L (5-31); Blood Urea Nitrogen 16 mg/dL (9-16); Calcium 9.0 mg/dL (8.4-10.2); Carbon Dioxide 30 mmol/L (22-29); Chloride 104 mmol/L (96-108); Creatinine Clr Calc Pharmacy 136.1; Estimated Glomerular Filt Rate > 60; Potassium 4.1 mmol/L (3.3-5.1); Sodium 144 mmol/L (135-145); Total Protein 8.0 g/dL (6.5-8.0)
[2025-05-07 05:53] LABS: B Type Natriuretic Peptide 15 pg/mL (<100)
[2025-05-07] MEDS: Magnesium Sulfate/H2O 2 GM/50 ML PIGGYBACK IV (05:53)
[2025-05-07 05:54] VITALS: BP 153/89; PULSE 83; RESP 21; O2SAT 97
[2025-05-07 05:57] LABS: Troponin-I High Sensitivity < 2.7 ng/L (<3.5-17.0)
[2025-05-07 06:18] LABS: Resp Syncy Virus RNA Qual PCR NEGATIVE (Negative); SARS COV2 PCR INHOUSE NEGATIVE (Negative)
--- NOTE | 2025-05-07 06:42 | PC.NURSE ---
unable to obtain ambulating O2, pt states she does not walk, uses w/c only
--- NOTE | 2025-05-07 06:52 | PC.NURSE ---
pt refused lab draw
[2025-05-07 07:22] VITALS: BP 155/90; PULSE 74; RESP 20; TEMP 36.6; O2SAT 98
[2025-05-07 08:33] VITALS: BP 153/87; PULSE 67; RESP 20; O2SAT 96
[2025-05-07 09:02] VITALS: BP 153/87; PULSE 67; RESP 20; TEMP -17.7; TEMP 0; O2SAT 96
== END 2025-05-07 09:02 | disposition home or self-care (01) ==
PROVIDERS: Emergency Provider Emergency Medicine
DX: J44.9 Chronic obstructive pulmonary disease, unspecified (principal); Z03.818 Encounter for observation for suspected exposure to other biological agents ruled out; R06.02 Shortness of breath; R05.9 Cough, unspecified; R06.82 Tachypnea, not elsewhere classified; Z79.899 Other long term (current) drug therapy
CPT/HCPCS: 36415; 71045; 80048; 80076; 80307; 82803; 83605; 83880; 84484; 85025; 87040; 87637; 93005; 94640; 96361; 96374; 96375; 99284; 99285; J0696; J2919; J3475